=== PATIENT | male | born 1985 | race Caucasian/White ===

== ENCOUNTER 2021-06-07 17:09 | Emergency (ER) | payer MEDICAID ==
[~2021-06-07] VITALS: Ht 175.3 cm; Wt 70.7 kg
[2021-06-07 17:18] VITALS: BP 129/78
--- NOTE | 2021-06-07 18:33 | NUR ---
PRICING CONSULTANT: CALLED FOR ROOM, NO ANSWER
--- NOTE | 2021-06-07 18:43 | NUR ---
PT AMBULATES FROM LOBBY TO ROOM WITH STEADY GAIT.
--- NOTE | 2021-06-07 18:43 | NUR ---
MASON TENDER: PT TO ROOM FROM PEYMAN CHAPMAN
--- NOTE | 2021-06-07 21:14 | NUR ---
REPORT OF PT TO BRIAN WIGGINS. ALL QUESTIONS ANSWERED
== END 2021-06-07 22:16 | disposition home or self-care (01) ==
LOC: ED 21:45
DX: N48.29 Other inflammatory disorders of penis (principal); Z20.2 Contact with and (suspected) exposure to infections with a predominantly sexual mode of transmission
CPT/HCPCS: 36415; 86592; 86780; 99283

== ENCOUNTER 2021-06-10 08:00 | Emergency (ER) | payer MEDICAID ==
[~2021-06-10] VITALS: Ht 175.3 cm; Wt 69.4 kg
--- NOTE | 2021-06-10 08:16 | NUR ---
PT STATES HE WAS RECENTLY DX'D W/ SYPHYLLIS, WAS TOLD TO COME IN FOR A SHOT.
--- NOTE | 2021-06-10 08:18 | NUR ---
DR MCRAE AT BS
[2021-06-10] MEDS ORDERED: BICILLIN-LA 2,400,000 UNITS/4 ML IM ONE (08:30)
--- NOTE | 2021-06-10 08:30 | NUR ---
ERP AND PT DISCUSSED PT'S PENICILLIN ALLERGY. PT REPORTS SLIGHT RASH TO ABDOMEN YEARS AGO WHEN TAKING PCN.
--- NOTE | 2021-06-10 10:12 | NUR ---
NO ALLERGIC REACTION NOTED. PT A&OX4, RESP EVEN & UNLABORED, SPEECH CLEAR. WRITTEN DC INSTRUCTIONS DISCUSSED W/ PT; UNDERSTANDING VERBALIZED.
[2021-06-10 10:13] VITALS: BP 115/71
== END 2021-06-10 10:15 | disposition home or self-care (01) ==
LOC: ED 08:33
DX: A51.0 Primary genital syphilis (principal)
CPT/HCPCS: 96372; 99283; J0561